=== PATIENT | female | born 1960 | race Caucasian/White ===

== ENCOUNTER → 2017-07-18 | Outpatient (CLI) | payer OTHER | LOC: CIMAGING 14:27 | PROVIDERS: ATTEND Internal Medicine | DX: Z12.31 Encounter for screening mammogram for malignant neoplasm of breast (principal) ==

== ENCOUNTER 2018-03-23 10:14 | Emergency (ER) | payer SELFPAY ==
--- NOTE | 2018-03-23 11:04 | EDPHY ---
H & P Time Seen by Provider: 03/23/18 10:21 HPI/ROS: CHIEF COMPLAINT: Pain on the right side, rash, pain in the left foot HISTORY OF PRESENT ILLNESS: This is a 48-year-old female with a history of diabetes, hypertension, sarcoidosis, and history of renal insufficiency who presents reporting that for the last week she has had vague burning discomfort and pain along her right side of her abdomen and on the right ribs. Today she noticed a rash. No fever. No nausea or vomiting. She has felt slightly short of breath but no cough or chest pain. She also reports a small "sore" on the instep of her left foot which makes it uncomfortable to walk. No diffuse redness or warmth across this foot. She denies any prior trauma, lesion, or bite. REVIEW OF SYSTEMS: A comprehensive 10 system review of systems was reviewed and is otherwise negative aside from elements mentioned in the history of present illness and medical decision making. PAST MEDICAL HISTORY: Hypertension, diabetes, sarcoidosis, renal insufficiency SOCIAL HISTORY: Nonsmoker. VITAL SIGNS Reviewed by me. O2 sat 94% GENERAL: Somewhat overweight, well-developed, well-nourished, resting comfortably in no respiratory distress. HEENT: Atraumatic. Eyes: No icterus, no injection. Mouth: moist mucous membranes. No oral lesions. No erythema or lesions. Neck: supple with no adenopathy. No meningismus. LUNGS: Clear to auscultation bilaterally, no wheezes, rhonchi or rales. CARDIAC: Regular rate and rhythm, no rubs, murmurs or gallops. ABDOMEN: Soft, moderately obese, nontender, nondistended, bowel sounds normal. BACK: No CVA tenderness. EXTREMITIES: No trauma. No pitting edema. Range of motion is normal throughout. 5 mm slightly scaling nodule present in the instep of the right foot. No surrounding erythema. NEURO: Alert and oriented, grossly nonfocal. SKIN: Warm and dry, the grouped vesicular rashes present in the right lateral abdominal wall. Lesion also present just to the right of midline at T12-L1 area. No vesicular rashes present on the left side. PSYCHIATRIC: Normal mentation, no agitation. Smoking Status: Never smoked Constitutional: Initial Vital Signs Temperature (C) 37.2 C 03/23/18 10:19 Heart Rate 82 03/23/18 10:19 Respiratory Rate 16 03/23/18 10:19 Blood Pressure 144/71 H 03/23/18 10:19 O2 Sat (%) 94 03/23/18 10:19 O2 Delivery Mode Room Air Allergies/Adverse Reactions: shellfish derived Allergy (Verified 03/23/18 10:28) red, swelling, itchy hands feet & face Home Medications: Medication Instructions Recorded Amlodipine Bes/Olmesartan Med 03/20/13 Losartan Potassium 03/20/13 Atorvastatin Calcium 03/23/18 Hydralazine HCl 03/23/18 Hydrocodone/APAP 5/325 [[place] 1 tab PO Q6H PRN #12 tab 03/23/18 5/325 (RX)] Levothyroxine 03/23/18 Metformin HCl 03/23/18 Mycophenolate Sodium 03/23/18 Valacyclovir HCl [Valtrex] 1,000 mg PO TID #21 tab 03/23/18 Vitamin B Complex 03/23/18 Medical Decision Making ED Course/Re-evaluation: 57-year-old female presenting with pain on the right side in a burning sensation now developed a rash. Patient's rights had rash is very consistent with herpes zoster. Patient does take mycophenolate for her sarcoidosis. She will be started on valacyclovir and given a 7 day supply. She understands importance of following up as soon as possible next week with her primary care physician to ensure that her zoster is remaining limited to 1 dermatome. She has a rash in the instep of her left foot which is rather nonspecific. It is a nodule which is palpable, larger than a vesicle, no vesicular appearance, with a slight bit of scaling on it. Patient was advised to use a little bit of antifungal cream to help treat this and she will watch carefully for any changes. Differential Diagnosis: Differential diagnosis of the patient's rash was considered including but not limited to allergic reaction, urticaria, viral exanthem, erythema multiforme, herpes zoster, Saxena-Maurice syndrome, petechial rash, scarlatiniform rash, HUS, cellulitis, or purpuric rash. Departure - Departure Clinical Impression: Rash Herpes zoster Qualifiers: Herpes zoster complications: without complications Qualified Code(s): B02.9 - Zoster without complications Condition: Good Instructions: Hydrocodone/Acetaminophen (By mouth), Valacyclovir (By mouth), Shingles (ED) Additional Instructions: I believe that the rash on your right side is shingles. You should avoid the skin to skin contact with other individuals. You also should not be around anyone who has not been vaccinated against chickenpox or has who has not had chickenpox, especially children. Do not be around any women. You are contagious until all of the lesions have scabbed over. Treatment is to take Valtrex 1 g by mouth 3 times a day for the next 7 days. I have also given you a prescription for hydrocodone with Tylenol. You may use this if needed for severe pain especially at night. Do not drive while you are taking the hydrocodone as it may make you sleepy. Follow up on Sunday or Sunday of next week with your primary care physician to ensure that you are doing well. The rash on your left foot appears to be a nonspecific type of a lesion. Please try using a small amount of a antifungal, athlete's foot, type of a cream. Please watch to be sure that no further bumps or rash develop on the left side. For the pain in the arch of the foot, I recommend ice, elevation, good supportive shoes, and observed to be sure that there is no further lesions developing. Because you are on a immunosuppressant drug, it is very important that she follow up with primary care physician Dr. Stockton early next week. Return to the emergency department or seek care urgently if you are worsening despite the above treatments, especially if you begin to developed a similar rash on the left side of your body or have significant worsening your shingles rash. Referrals: Carmen Stockton MD [Primary Care Provider] - As per Instructions Prescriptions: Hydrocodone/APAP 5/325 [[place] 5/325 (RX)] 1 tab PO Q6H PRN #12 tab PRN Reason: Pain Valacyclovir HCl [Valtrex] 1,000 mg PO TID #21 tab
[2018-03-23] MEDS: valACYclovir 500 MG TAB PO ONE ×2 (11:23→11:37)
[2018-03-23 11:36] VITALS: BP 155/80
== END 2018-03-23 11:35 | disposition home or self-care (01) ==
LOC: CED 10:14
DX: B02.9 Zoster without complications (principal); I10 Essential (primary) hypertension; E11.9 Type 2 diabetes mellitus without complications; N28.9 Disorder of kidney and ureter, unspecified; D86.9 Sarcoidosis, unspecified
CPT/HCPCS: 82435-PO; 82565-PO; 82947-PO; 84132-PO; 84295-PO; 84520-PO; 85014-PO